=== PATIENT | female | born 1985 | race Caucasian/White ===

== ENCOUNTER → 2016-11-22 | Outpatient (CLI) | payer BC ==
[2016-11-22 12:55] LABS: Basophils # (A) 0.1 k/uL (0-0.2); Basophils % (A) 1 %; CH 31.1; CHCM 33.6; Eosinophils # (A) 0.2 k/uL (0-0.7); Eosinophils % (A) 4 %; HCT 40.7 % (34.0-46.0); HDW 2.41; HGB 13.6 gm/dL (11.4-16.0); Luc # (Auto) 0.11; Luc % (Auto) 2; Lymphocytes # (A) 2.2 k/uL (1.0-4.8); Lymphocytes % (A) 46 %; MCH 31.1 pg (25.0-35.0); MCHC 33.4 g/dL (31.0-37.0); MCV 93.2 fL (80.0-100.0); Mean Platelet Volume 8.1; Monocytes # (A) 0.3 k/uL (0-1.0); Monocytes % (A) 6 %; Neutrophils # (A) 1.9 k/uL (1.3-7.7); Neutrophils % (A) 41 %; RBC 4.37 m/uL (3.80-5.40); RDW 12.9 % (11.5-15.5); WBC 4.7 k/uL (3.8-10.6); WBC (Perox) 4.67
[2016-11-22 13:08] LABS: Cholesterol 134 mg/dL (<200); Glucose 76 mg/dL (74-99); HDL Cholesterol 66 mg/dL (40-60); Triglycerides 27 mg/dL (<150)
== END | disposition home or self-care (01) ==
LOC: LABWHC1 12:22
PROVIDERS: ATTEND Family Medicine
DX: Z00.00 Encounter for general adult medical examination without abnormal findings (principal)
CPT/HCPCS: 36415; 80061; 82947; 85025

== ENCOUNTER → 2017-05-31 | Outpatient (CLI) | payer BC | END | disposition home or self-care (01) | LOC: LABWHC1 13:53 | PROVIDERS: ATTEND Obstetrics & Gynecology | DX: O20.0 Threatened abortion (principal); Z3A.00 Weeks of gestation of pregnancy not specified | CPT/HCPCS: 36415; 84702; 86850; 86900; 86901 ==

== ENCOUNTER → 2017-06-02 | Outpatient (CLI) | payer BC | END | disposition home or self-care (01) | LOC: LABWHC1 16:11 | PROVIDERS: ATTEND Obstetrics & Gynecology | DX: O20.0 Threatened abortion (principal); Z3A.00 Weeks of gestation of pregnancy not specified | CPT/HCPCS: 36415; 84702 ==

== ENCOUNTER → 2017-06-04 | Outpatient (CLI) | payer BC | END | disposition home or self-care (01) | LOC: LABWHC1 11:25 | PROVIDERS: ATTEND Obstetrics & Gynecology | DX: O20.0 Threatened abortion (principal); Z3A.00 Weeks of gestation of pregnancy not specified | CPT/HCPCS: 36415; 84702 ==

== ENCOUNTER → 2017-06-09 | Outpatient (CLI) | payer BC | END | disposition home or self-care (01) | LOC: LABWHC1 13:59 | PROVIDERS: ATTEND Obstetrics & Gynecology | DX: O20.0 Threatened abortion (principal) | CPT/HCPCS: 36415; 84702 ==

== ENCOUNTER 2018-12-10 10:54 | Inpatient (IN) | payer BC ==
[2018-12-15] MEDS ORDERED: ROPIVACAINE 5MG/ML 20ML VIAL ONE (03:01)
[2018-12-15] MEDS ORDERED: SODIUM CHLORIDE 0.9% 100 ML BAG ONE (03:01)
[2018-12-15] MEDS ORDERED: fentaNYL (PF) 50 MCG/ML 5 ML AMP ONE (03:01)
[2018-12-15] MEDS ORDERED: LIDOCAINE 0.5% (PF) 5 MG/ML (50 ML SDV) SQ PRN (03:02)
[2018-12-15] MEDS ORDERED: OXYTOCIN 10 UNIT/ML 1 ML VIAL IM PRN (03:02)
[2018-12-15] MEDS ORDERED: METHYLERGONOVINE 0.2 MG/ML 1 ML AMP IM PRN (03:02)
[2018-12-15] MEDS ORDERED: CARBOPROST TROMETHAMINE 250 MCG/ML 1 ML AMP IM PRN (03:02)
[2018-12-15] MEDS ORDERED: TERBUTALINE 1 MG/ML VIAL SQ PRN (03:02)
[2018-12-15 03:12] LABS: Basophils % (A) 0 %; Eosinophils # (A) 0.1 k/uL (0-0.7); Eosinophils % (A) 2 %; HGB 10.9 gm/dL (11.4-16.0); Lymphocytes # (A) 1.8 k/uL (1.0-4.8); Lymphocytes % (A) 26 %; MCH 28.1 pg (25.0-35.0); MCHC 32.2 g/dL (31.0-37.0); MCV 87.4 fL (80.0-100.0); Mean Platelet Volume 8.3; Monocytes # (A) 0.5 k/uL (0-1.0); Monocytes % (A) 7 %; Neutrophils # (A) 4.4 k/uL (1.3-7.7); Neutrophils % (A) 63 %; Platelet Count 169 k/uL (150-450); RBC 3.89 m/uL (3.80-5.40)
[2018-12-15] MEDS ORDERED: PENICILLIN G POTASSIUM 5,000,000 UNIT in DEXTROSE 5% IN WATER 100 ML IVPB ONE ×2 (03:30)
[2018-12-15] MEDS: LACTATED RINGERS 1,000 ML IV SCH ×2 (03:32→21:33)
[2018-12-15 03:42] VITALS: BMI 28.5
[2018-12-15] MEDS ORDERED: HYDROcodone/APAP 7.5-325MG 1 EACH TAB PO PRN (04:28)
[2018-12-15] MEDS ORDERED: ZOLPIDEM 5 MG TAB PO PRN (04:28)
[2018-12-15] MEDS ORDERED: HYDROcodone/APAP 5-325MG 1 EACH TAB PO PRN (04:28)
[2018-12-15] MEDS ORDERED: WITCH HAZEL 1 EACH MED..PAD TOPICAL PRN (04:28)
[2018-12-15] MEDS ORDERED: SIMETHICONE 80 MG CHEWABLE PO PRN (04:28)
[2018-12-15] MEDS ORDERED: HYDROCORTISONE 2.5% RECTAL CREAM 30 GM TUBE RECTAL PRN (04:28)
[2018-12-15] MEDS ORDERED: LANOLIN CREAM 5 GM TUBE TOPICAL PRN (04:28)
[2018-12-15] MEDS ORDERED: diphenhydrAMINE 50 MG/ML 1 ML VIAL IVP PRN ×2 (04:28)
[2018-12-15] MEDS ORDERED: BENZOCAINE/MENTHOL SPRAY 1 GM/SPRAY AEROSOL TOPICAL PRN (04:28)
[2018-12-15] MEDS ORDERED: diphenhydrAMINE 25 MG CAP PO PRN (04:28)
[2018-12-15] MEDS ORDERED: ACETAMINOPHEN TAB 325 MG TAB PO PRN (04:28)
[2018-12-15] MEDS ORDERED: diphenhydrAMINE 50 MG CAP PO PRN (04:28)
[2018-12-15] MEDS ORDERED: OXYTOCIN 20 UNITS/1000 ML NS 1,000 ML IV SCH (04:30)
--- NOTE | 2018-12-15 04:34 | P.HPOB ---
History of Present Illness H&P Date: 12/15/18 Chief Complaint: 40-5/7 weeks, active labor The patient is a 33-year-old 4 para 2011 who presented to triage in early active labor with all signs reassuring. She had been scheduled for an induction this morning but presented in labor as noted above. Her has been entirely uncomplicated though she is known to be group B strep positive. She has requested an epidural. Obstetrical history: 4 para 2012 with 2 term vaginal deliveries without complications. She did have one early miscarriage requiring D&C. Current statistics are listed in history present illness. EDC of 12/10/2018 was established by last menstrual period and confirmed by an 8 week ultrasound. Laboratory workup done Schutze blood type of O+ with a negative antibody screen. Rubella status is immune. The remainder of her laboratory workups within normal limits. One hour Glucola was normal and group B strep status is positive. Gynecologic history: Unremarkable with no history of infections to include STDs. Review of Systems Review of systems is confined to history of present illness. Past Medical History Past Medical History: No Reported History History of Any Multi-Drug Resistant Organisms: None Reported Additional Past Surgical History / Comment(s): eye surgury, wisdom teeth removed, batholin gland surgery Past Anesthesia/Blood Transfusion Reactions: No Reported Reaction Past Psychological History: No Psychological Hx Reported Smoking Status: Never smoker Past Alcohol Use History: None Reported Past Drug Use History: None Reported - Past Family History Father Family Medical History: Cancer Medications and Allergies Home Medications Medication Instructions Recorded Confirmed Type 78/Iron/Folate 1/Dha 1 each PO DAILY 10/13/15 12/15/18 History [Prenate Dha Softgel] Allergies Allergy/AdvReac Type Severity Reaction Status Date / Time No Known Allergies Allergy Verified 12/15/18 03:01 Exam Vital Signs Temp Pulse Resp BP Pulse Ox 12/15/18 03:38 97.6 F 87 18 121/74 100 Intake and Output 12/14/18 12/14/18 12/15/18 14:59 22:59 06:59 Other: Weight 73.028 kg In general, this is a well-developed, well-nourished white female in no acute distress. Her heart has a regular rhythm and rate without murmur. Her lungs are clear to auscultation bilaterally in all gaming. Her abdomen is gravid, nondistended, has normal active bowel sounds, soft, nontender, and without any palpable masses aside from the uterine fundus. Her extremities are without any cyanosis, clubbing, or significant edema and are nontender to palpation bilaterally. Digital cervical examination on presentation of a straight scissors to be proximally 600 is dilated, 80% effaced, the vertex in presentation at -1 station. Results Result Diagrams: 12/15/18 02:55 Abnormal Lab Results - Last 24 Hours (Table) 12/15/18 Range/Units 02:55 Hgb 10.9 L (11.4-16.0) gm/dL Assessment and Plan (1) Group B streptococcal infection in Current Visit: Yes Status: Acute Code(s): O98.819 - OTH MATERNAL INFEC/PARASTC DISEASES COMP PREG, UNSP TRI; B95.1 - STREPTOCOCCUS, GROUP B, CAUSING DISEASES CLASSD ELSR SNOMED Code(s): 435702604 (2) Post-dates Current Visit: Yes Status: Acute Code(s): O48.0 - POST-TERM SNOMED Code(s): 71674370 (3) Active labor at term Current Visit: Yes Status: Acute Code(s): GKZ6038 - SNOMED Code(s): 36791177 Plan: The patient is admitted for active management of labor. Antibody prophylaxis has been started for group B strep prophylaxis. She will have close maternal and surveillance and expectant management B practiced. She is a good candidate for either IV or epidural analgesia, whichever she may choose. She has requested epidural be placed which will be done shortly.
--- NOTE | 2018-12-15 04:36 | P.PROBDLV ---
Vaginal Delivery Note - . Vaginal Delivery Note: The patient is a 33-year-old 4 para 2011 admitted at 40-5/7 weeks by good dating parameters. She is admitted in active labor with all signs reassuring. Her has been uncomplicated and group B strep status is positive. As result, she had antibiotic prophylaxis started for group B strep and requested an epidural catheter be placed for analgesia. Shortly after the epidural had been placed, she was found to be completely dilated having progress to the active phase of labor very quickly. She then underwent artificial rupture of membranes demonstrating clear fluid. She pushed over 1 contraction to a normal spontaneous vaginal delivery of a viable 8 lbs. 1 oz. baby boy with Apgars of 9 at 1 minutes and 9 at 5 minutes. The placenta was delivered spontaneously, intact, and grossly normal with a grossly normal three-vessel cord inserted approximately 5 cm from margin of the placental edge. There was a small second-degree midline perineal laceration over the site of a previous repair which was repaired in standard fashion with 3-0 chromic catgut without difficulty. Estimated blood loss for the entire case was approximately 200 mL. There are no complications. All sponge, instrument, and needle counts were correct. Both mother and are resting comfortably in recovery.
[2018-12-15] MEDS ORDERED: PENICILLIN G POTASSIUM 2,500,000 UNIT in DEXTROSE 5% IN WATER 100 ML IVPB SCH ×2 (08:00)
[2018-12-15] MEDS: SENNOSIDES-DOCUSATE SODIUM 1 EACH TAB PO SCH ×2 (08:17→20:11)
[2018-12-15] MEDS: IBUPROFEN 600 MG TAB PO PRN (15:54)
[2018-12-16] MEDS: SENNOSIDES-DOCUSATE SODIUM 1 EACH TAB PO SCH ×2 (08:32→19:26)
--- NOTE | 2018-12-16 10:11 | P.PNOBGVD ---
Subjective - Subjective Principal diagnosis: PPD 1 Interval history: Patient is doing well on this day #1. She is ambulating and voiding without difficulty. She states her pain is well-controlled. She denies concerns. She plans to stay an additional day secondary to monitoring of the infant. Patient was known GBS positive and treated 1 before her delivery. Patient reports: Reports appetite normal, Reports voiding normally, Reports pain well controlled, Reports ambulating normally : doing well Objective - Latest Vital Signs Latest vital signs: Vital Signs Temp Pulse Pulse Resp BP 12/16/18 08:00 98.4 F 95 16 98/68 12/16/18 00:00 97.6 F 75 16 111/60 12/15/18 16:00 97.7 F 80 16 126/72 12/15/18 12:00 98 F 16 102/52 Intake and Output 12/15/18 12/16/18 12/16/18 22:59 06:59 14:59 Other: # Voids 1 2 2 - Exam Extremities: Present: normal, edema Abdomen: Present: normal appearance, soft Uterus: Present: normal, firm Assessment and Plan (1) Active labor at term Current Visit: Yes Status: Acute Code(s): [id number] - SNOMED Code(s): 93894435 (2) Group B streptococcal infection in Current Visit: Yes Status: Acute Code(s): O98.819 - OTH MATERNAL INFEC/PARASTC DISEASES COMP PREG, UNSP TRI; B95.1 - STREPTOCOCCUS, GROUP B, CAUSING DISEASES CLASSD ELSR SNOMED Code(s): 095232436 (3) Normal spontaneous vaginal delivery Current Visit: Yes Status: Acute Code(s): O80 - ENCOUNTER FOR FULL-TERM UNCOMPLICATED DELIVERY SNOMED Code(s): 78190257 (4) Perineal laceration during delivery Current Visit: Yes Status: Acute Code(s): O70.9 - PERINEAL LACERATION DURING DELIVERY, UNSPECIFIED SNOMED Code(s): 927738559 (5) Post-dates Current Visit: Yes Status: Acute Code(s): O48.0 - POST-TERM SNOMED Code(s): 66944952 Plan: We'll plan to continue routine care and anticipate discharge home tomorrow.
[2018-12-16] MEDS: IBUPROFEN 600 MG TAB PO PRN (16:02)
[2018-12-17 09:04] VITALS: BP 121/68; PULSE 78; RESP 18; TEMP 98.3
[2018-12-17] MEDS: SENNOSIDES-DOCUSATE SODIUM 1 EACH TAB PO SCH (09:16)
--- NOTE | 2018-12-17 11:13 | P.DS ---
Providers Date of admission: 12/15/18 02:35 Expected date of discharge: 12/17/18 Attending physician: Shin Carrillo Primary care physician: Stated None - Discharge Diagnosis(es) (1) Active labor at term Current Visit: Yes Status: Acute (2) Group B streptococcal infection in Current Visit: Yes Status: Acute (3) Normal spontaneous vaginal delivery Current Visit: Yes Status: Acute (4) Perineal laceration during delivery Current Visit: Yes Status: Acute (5) Post-dates Current Visit: Yes Status: Acute Hospital Course: This is a 33-year-old 4 para 2011 that was admitted to labor and delivery on 12/15 at 40-5/7 weeks of gestation. Patient was admitted in active labor heart tones were noted to be category 1. For further details on this patient please see the dictated H&P. Patient was admitted requested epidural for analgesia shortly afterwards she was completely dilated and began pushing and had a normal spontaneous vaginal delivery of a viable male infant weight of 8 lbs. 1 oz. and Apgars of 9 and 9 at one and 5 minutes respectively. Patient did sustain a small second-degree midline perineal laceration that was repaired in the usual fashion with 3-0 chromic. Patient's course has been uneventful. On this day #2 she is a billing and voiding without difficulty. She is tolerating a regular diet without nausea or vomiting. Her lochia is moderate. She denies concerns and wishes discharge home. Patient Condition at Discharge: Good Plan - Discharge Summary New Discharge Prescriptions: No Action 78/Iron/Folate 1/Dha [Prenate Dha Softgel] 1 each PO DAILY Discharge Medication List 78/Iron/Folate 1/Dha [Prenate Dha Softgel] 1 each PO DAILY 10/13/15 [History] Follow up Appointment(s)/Referral(s): Shin Carrillo MD [STAFF PHYSICIAN] - 6 Weeks Patient Instructions/Handouts: Vaginal Delivery (GEN), Vaginal Delivery (DC) Discharge Disposition: HOME SELF-CARE
== END 2018-12-17 11:10 | disposition home or self-care (01) | DRG 807 ==
LOC: 4FBP 12-15 02:35
PROVIDERS: ADMIT Obstetrics & Gynecology; ATTEND Obstetrics & Gynecology
PROC: 10E0XZZ Delivery of Products of Conception, External Approach (ICD-10-PCS; principal; 2018-12-15)
PROC: 10907ZC Drainage of Amniotic Fluid, Therapeutic from Products of Conception, Via Natural or Artificial Opening (ICD-10-PCS; principal; 2018-12-15)
PROC: 3E0R3BZ Introduction of Anesthetic Agent into Spinal Canal, Percutaneous Approach (ICD-10-PCS; principal; 2018-12-15)
PROC: 00HU33Z Insertion of Infusion Device into Spinal Canal, Percutaneous Approach (ICD-10-PCS; principal; 2018-12-15)
PROC: 0KQM0ZZ Repair Perineum Muscle, Open Approach (ICD-10-PCS; principal; 2018-12-15)
DX: O98.82 Other maternal infectious and parasitic diseases complicating childbirth (principal); Z37.0 Single live birth; Z3A.40 40 weeks gestation of pregnancy; O70.1 Second degree perineal laceration during delivery; B95.1 Streptococcus, group B, as the cause of diseases classified elsewhere; Z98.890 Other specified postprocedural states; Z80.9 Family history of malignant neoplasm, unspecified
CPT/HCPCS: 85025; 86850; 86900; 86901

== ENCOUNTER → 2022-03-15 | Outpatient (CLI) | payer BC ==
--- NOTE | 2022-03-16 16:58 | MM ---
Reason for Exam: Screening (asymptomatic). Baseline mammogram. Patient History: Menarche at age 11. First Full-Term at age 27. Patient has history of breast feeding. Patient used Hormonal Contraceptives for 4 years. Paternal aunt had breast cancer at or over age 50. Last menstrual period: 03/15/2022 Risk Values: Marilu 5 year model risk: 0.4%. NCI Lifetime model risk: 12.4%. Prior Study Comparison: Patient's first Mammogram. Tissue Density: The breast tissue is heterogeneously dense. This may lower the sensitivity of mammography. Findings: Analyzed By CAD. There is scattered benign punctate calcifications greater on the right. No suspicious groups of microcalcifications, spiculated or lobular masses, architectural distortion or other secondary signs of malignancy are mammographically apparent. Overall Assessment: Benign, BI-RAD 2 Management: Screening Mammogram of both breasts in 1 year. A negative mammogram report should not preclude additional follow up of suspicious palpable abnormalities. Patient should continue monthly self breast exam. A clinical breast exam by your physician is recommended on an annual basis and results should be correlated with mammographic findings. Electronically signed and approved by: Ladarius Lafleur D.O. [employer]olog[facility]
== END | disposition home or self-care (01) ==
LOC: RADMAMWWP 08:15
PROVIDERS: ATTEND Obstetrics & Gynecology
DX: Z12.31 Encounter for screening mammogram for malignant neoplasm of breast (principal); Z80.3 Family history of malignant neoplasm of breast
CPT/HCPCS: 77063; 77067